=== PATIENT | male | born 1970 | race Caucasian/White ===

== ENCOUNTER 2016-09-18 12:00 | Inpatient (IN) | payer BC ==
[~2016-09-18] VITALS: Ht 177.8 cm; Wt 107.8 kg
[~2016-09-18 12:00] MED LIST: NOHOMEMEDS
[2016-09-18 13:29] LABS: HEMATOCRIT 45.8 % (38.0-50.0); MCH 30.1 PG (29.0-34.0); MCHC 34.7 G/DL (30.0-36.0); MCV 86.6 FL (86-99); PLATELET COUNT 234 K/uL (156-360); RBC DIS.WIDTH-SD 40.5 % (39-53); RED BLOOD COUNT 5.29 M/uL (4.00-5.50); WHITE BLOOD COUNT 13.3 K/uL (4.1-10.2)
[2016-09-18 13:40] LABS: CHLORIDE 107 mEq/L (99-109); POTASSIUM 3.8 mEq/L (3.7-5.4); SODIUM 140 mEq/L (136-147)
[2016-09-18 13:42] LABS: GLUCOSE 132 mg/dL (70-99)
[2016-09-18 13:43] LABS: ANION GAP 12 MEQ/L (2-14)
[2016-09-18 13:44] LABS: TOTAL BILIRUBIN 0.8 mg/dL (0.0-1.0)
[2016-09-18 13:46] LABS: ALKALINE PHOSPHATASE 79 IU/L (3-129); GFR ESTIMATE (CALCULATED) 58 mL/min/
[2016-09-18 13:47] LABS: UREA NITROGEN (BUN) 15 mg/dL (9-23)
[2016-09-18 14:41] LABS: INFLUENZA A VIRAL ANTIGEN NEGATIVE; INFLUENZA B VIRAL ANTIGEN NEGATIVE
[2016-09-18] MEDS ORDERED: CLARITIN,ALAVAR10 MG PO (16:34)
[2016-09-18] MEDS ORDERED: LOW DOSE ASPIRI81 M1 PO (16:34)
[2016-09-18] MEDS ORDERED: VALIUM5 MG PO (16:34)
[2016-09-18] MEDS ORDERED: FLONASE16 G1 BOTH NARES (16:35)
[2016-09-18 21:09] LABS: ADD MIUA? NO; BILIRUBIN NEGATIVE; BLOOD NEGATIVE; COLOR STRAW ((YELLOW)); GLUCOSE (STRIP) NEGATIVE; KETONES NEGATIVE; LEUKOCYTES NEGATIVE; NITRITE NEGATIVE; PROTEIN (STRIP) NEGATIVE; SPECIFIC GRAVITY 1.006 (1.000-1.030); UCUL ADDED? NO; UROBILINOGEN 0.2 MG/DL (0.2-1.0)
[2016-09-19] VITALS (7 sets, daily range): BP systolic 117–132; BP diastolic 65–76
[2016-09-19 05:06] LABS: EOSINOPHIL (%) 0 % (0-5); HEMATOCRIT 40.5 % (38.0-50.0); IMMATURE GRANULOCYTE (%) 0.6 % (0.0-0.7); IMMATURE GRANULOCYTE COUNT 0.1 K/uL; INSTRUMENT ABS NEUTROPHIL CT 8.4 K/uL; LYMPHOCYTE COUNT 0.3 K/uL (1.0-2.8); MCH 29.7 PG (29.0-34.0); MCHC 33.8 G/DL (30.0-36.0); MCV 87.7 FL (86-99); MONOCYTE (%) 3.4 % (3-12); MONOCYTE COUNT 0.3 K/uL (0-0.8); NEUTROPHIL (%) 93.1 % (45-76); NEUTROPHIL COUNT 8.4 K/uL (1.8-6.4); PLATELET COUNT 178 K/uL (156-360); RBC DIS.WIDTH-CV 13.3 % (11.8-14.6); RBC DIS.WIDTH-SD 42.9 % (39-53); RED BLOOD COUNT 4.62 M/uL (4.00-5.50)
[2016-09-19 05:13] LABS: CHLORIDE 110 mEq/L (99-109); SODIUM 139 mEq/L (136-147)
[2016-09-19 05:15] LABS: GLUCOSE 126 mg/dL (70-99)
[2016-09-19 05:16] LABS: ANION GAP 7 MEQ/L (2-14)
[2016-09-19 05:18] LABS: ALKALINE PHOSPHATASE 69 IU/L (3-129)
[2016-09-19 05:19] LABS: GFR ESTIMATE (CALCULATED) > 59 mL/min/
[2016-09-19 05:20] LABS: TOTAL BILIRUBIN 1.1 mg/dL (0.0-1.0); UREA NITROGEN (BUN) 13 mg/dL (9-23)
[2016-09-20 06:44] LABS: ANION GAP 7 MEQ/L (2-14); CHLORIDE 107 MEQ/L (99-109); GFR ESTIMATE (CALCULATED) > 59 mL/min/; GLUCOSE 96 mg/dL (70-99); POTASSIUM 4.3 MEQ/L (3.7-5.4); SAMPLE HEMOLYSIS CHECK 0; SAMPLE ICTERIC CHECK 0; SAMPLE LIPEMIA CHECK 0; SODIUM 139 MEQ/L (136-147); UREA NITROGEN (BUN) 9 mg/dL (9-23)
[2016-09-20 07:28] LABS: HEMATOCRIT 38.4 % (38.0-50.0); MCHC 33.9 G/DL (30.0-36.0); MCV 88.7 FL (86-99); MEAN PLAT.VOLUME 10.4 uM^3 (9.0-12.4); PLATELET COUNT 158 K/uL (156-360); RBC DIS.WIDTH-CV 13.4 % (11.8-14.6); RBC DIS.WIDTH-SD 43.9 % (39-53); RED BLOOD COUNT 4.33 M/uL (4.00-5.50); WHITE BLOOD COUNT 6.3 K/uL (4.1-10.2)
[2016-09-20 08:05] VITALS: BP 109/68
[2016-09-20 11:49] VITALS: BP 130/64
[2016-09-20 15:44] VITALS: BP 133/89
[2016-09-20 19:51] VITALS: BP 136/87
[2016-09-21 00:48] VITALS: BP 124/86
[2016-09-21 04:51] VITALS: BP 122/78
[2016-09-21 07:16] LABS: ANION GAP 8 MEQ/L (2-14); CHLORIDE 105 MEQ/L (99-109); GFR ESTIMATE (CALCULATED) > 59 mL/min/; GLUCOSE 89 mg/dL (70-99); POTASSIUM 3.9 MEQ/L (3.7-5.4); SAMPLE HEMOLYSIS CHECK 1; SAMPLE ICTERIC CHECK 0; SAMPLE LIPEMIA CHECK 0; SODIUM 137 MEQ/L (136-147); UREA NITROGEN (BUN) 8 mg/dL (9-23)
[2016-09-21 08:30] VITALS: BP 126/83
[2016-09-21] MEDS ORDERED: FLAGYL500 MG PO (09:10)
[2016-09-21] MEDS ORDERED: CIPRO500 MG PO (09:10)
== END 2016-09-21 10:35 | disposition home or self-care (01) | DRG 871 ==
LOC: EME 12:00 → 4SOUTH 20:15 → EDOF 20:15 → 4EAST 20:15 → EDOF 09-19 00:06 → 4EAST 09-19 01:12 → 4SOUTH 09-19 20:07
PROVIDERS: Hospitalist; Internal Medicine; Nurse Practitioner Family; Physician Assistant
PROC: 02HV33Z Insertion of Infusion Device into Superior Vena Cava, Percutaneous Approach (ICD-10-PCS; principal; 2016-09-18)
DX: A41.9 Sepsis, unspecified organism (principal); R65.21 Severe sepsis with septic shock; K57.92 Diverticulitis of intestine, part unspecified, without perforation or abscess without bleeding; F41.9 Anxiety disorder, unspecified; N17.9 Acute kidney failure, unspecified; E66.9 Obesity, unspecified; R73.9 Hyperglycemia, unspecified; Z68.34 Body mass index [BMI] 34.0-34.9, adult
CPT/HCPCS: 70450; 71010; 71020; 74177; 80048; 80053; 80200; 80202; 81003; 83605; 85025; 85027; 87040; 87070; 87076; 87205; 87502; 93005; 94660; 99281; 99285; J1644; J2543; J3260; J3370; J7030; J7050